=== PATIENT | female | born 1995 | race American Indian/Alaskan Native ===

== ENCOUNTER 2019-12-15 00:29 | Emergency (ER) | payer SELFPAY ==
--- NOTE | 2019-12-15 01:23 | XRay Report ---
LEFT SHOULDER 3 VIEWS INDICATION / CLINICAL INFORMATION: Left shoulder pain and swelling after fall. COMPARISON: None available. FINDINGS: BONES and JOINT(S): No acute fracture or subluxation. No significant arthritis. SOFT TISSUES: No significant abnormality. ADDITIONAL FINDINGS: None. IMPRESSION: No significant abnormality of the left shoulder. Signer Name: Roni Aldridge MD Signed: 12/15/2019 1:18 AM Workstation Name: [id number]
--- NOTE | 2019-12-15 03:31 | Emergency Department Report ---
Chief Complaint: Extremity Injury, Upper Stated Complaint: SHOULDER INJURY Time Seen by Provider: 12/15/19 03:25 - HPI History of Present Illness: 24-year-old -[place] female presents to the emergency room complaining of left shoulder pain that she injured while playing basketball today. - Exam Vital Signs: Vital Signs 12/15/19 00:48 Temperature 98.3 F Pulse Rate 71 Respiratory 18 Rate Blood Pressure 128/74 O2 Sat by Pulse 98 Oximetry Physical Exam: Alert and oriented 3 Left shoulder full range of motion mild tenderness. MSE screening note: Focused history and physical exam performed. Due to findings the following was ordered: 24-year-old -[place] female presents to the emergency room complaining of left shoulder pain that she injured while playing basketball today. ED Disposition for MSE Clinical Impression: Injury of left shoulder Disposition: Z- MED SCREENING EXAM-LEFT Is pt being admited?: No Does the pt Need Aspirin: No Condition: Stable Additional Instructions: Take [id number] ibuprofen or Tylenol for pain management x-ray is negative for any dislocation or fractures Referrals: PRIMARY CARE, [Primary Care Provider] - 3-5 Days
[2019-12-15 03:46] VITALS: BP 135/72
== END 2019-12-15 03:47 | disposition left against medical advice (07) ==
LOC: ED 00:29
DX: S49.92XA Unspecified injury of left shoulder and upper arm, initial encounter (principal); X58.XXXA Exposure to other specified factors, initial encounter; Y93.67 Activity, basketball; Y92.89 Other specified places as the place of occurrence of the external cause; Y99.8 Other external cause status

== ENCOUNTER 2020-05-03 18:45 | Emergency (ER) | payer SELFPAY | END 2020-05-04 07:35 | disposition left against medical advice (07) | LOC: ED 18:45 | DX: R51 Headache (principal); R07.89 Other chest pain; Z53.21 Procedure and treatment not carried out due to patient leaving prior to being seen by health care provider | CPT/HCPCS: 93005 ==

== ENCOUNTER 2020-07-13 23:09 | Emergency (ER) | payer SELFPAY ==
[2020-07-13 23:32] VITALS: BP 124/85
[2020-07-14] MEDS ORDERED: ONDANSETRON 4 MG ODT TAB PO ONE (00:40)
[2020-07-14 00:43] LABS: Bilirubin,Urine NEG (Negative); Blood,Urine LG (Negative); Color,Urine Yellow (Yellow); Mucus,Urine FEW /HPF; Protein,Urine <15 mg/dL mg/dL (Negative); Urobilinogen,Urine < 2.0 mg/dL (<2.0)
[2020-07-14 00:44] LABS: HCG Qualitative,Urine Negative (Negative)
--- NOTE | 2020-07-14 00:49 | Emergency Department Report ---
ED N/V/D HPI - General Chief complaint: Nausea/Vomiting/Diarrhea Stated complaint: NAUSEA,VOMITING,DIZZINESS Source: patient Mode of arrival: Ambulatory Limitations: No Limitations - History of Present Illness Initial comments: Patient is a nulliparous 25-year-old -[place] female with no past medical history presents to the ED with complaint of acute onset persistent in tractable nausea and vomiting for the last 4 hours after eating potato salad at a cookout dinner at a friend's house about 6 hours ago. Patient states that she has had 2 intractable nausea and vomiting episodes the last time of which was in the ED upon arrival. Patient states that she tried to drink some water but was unable to keep anything down because of nausea and vomiting. Patient denies a bdominal pain, dizziness, syncope, fever, chills, diarrhea, dysuria, urinary frequency and urgency, chest pain, shortness of breath, sore throat, headache or vaginal bleeding and vaginal discharge. MD complaint: nausea, vomiting -: Sudden, hour(s) (4) Description of Vomiting: food contents Location: diffuse Radiation: none Severity: moderate Quality: dull Consistency: intermittent Improves with: none Worsens with: none Context: possible food poisoning Associated Symptoms: denies other symptoms, myalgias, loss of appetite, malaise. denies: chest pain, cough, diaphoresis, fever/chills, headaches, nausea/vomiting, rash, dysuria, shortness of breath, syncope, weakness - Related Data Previous Rx's Medication Instructions Recorded Last Taken Type Famotidine [Pepcid] 20 mg PO Q12H #40 tablet 07/14/20 Unknown Rx Ondansetron [Zofran Odt] 4 mg PO Q6HR PRN #20 tab.rapdis 07/14/20 Unknown Rx Allergies Allergy/AdvReac Type Severity Reaction Status Date / Time No Known Allergies Allergy Unverified 12/15/19 00:54 ED Review of Systems ROS: Stated complaint: NAUSEA,VOMITING,DIZZINESS Other details as noted in HPI Constitutional: malaise, weakness. denies: chills, fever Eyes: denies: eye pain, eye discharge, vision change ENT: denies: ear pain, throat pain Respiratory: denies: cough, shortness of breath, wheezing Cardiovascular: denies: chest pain, palpitations Endocrine: no symptoms reported Gastrointestinal: nausea, vomiting. denies: abdominal pain, diarrhea Genitourinary: denies: urgency, dysuria, discharge Musculoskeletal: myalgia. denies: back pain, joint swelling, arthralgia Skin: denies: rash, lesions Neurological: denies: weakness, paresthesias Psychiatric: anxiety. denies: depression Hematological/Lymphatic: denies: easy bleeding, easy bruising ED Past Medical Hx - Past Medical History Previous Medical History?: No - Surgical History Past Surgical History?: Yes Additional Surgical History: Elbow - Social History Smoking Status: Never Smoker Substance Use Type: Marijuana - Medications Home Medications: Home Medications Medication Instructions Recorded Confirmed Last Taken Type Famotidine [Pepcid] 20 mg PO Q12H #40 tablet 07/14/20 Unknown Rx Ondansetron [Zofran Odt] 4 mg PO Q6HR PRN #20 tab.rapdis 07/14/20 Unknown Rx ED Physical Exam - General Limitations: No Limitations General appearance: alert, in no apparent distress - Head Head exam: Present: atraumatic, normocephalic, normal inspection - Eye Eye exam: Present: normal appearance, PERRL, EOMI Pupils: Present: normal accommodation - ENT ENT exam: Present: normal exam, normal orophraynx, mucous membranes moist, TM's normal bilaterally, normal external ear exam - Neck Neck exam: Present: normal inspection, full ROM - Respiratory Respiratory exam: Present: normal lung sounds bilaterally. Absent: respiratory distress, wheezes, rales, rhonchi, chest wall tenderness, accessory muscle use, decreased breath sounds, prolonged expiratory - Cardiovascular Cardiovascular Exam: Present: regular rate, normal rhythm, normal heart sounds. Absent: systolic murmur, diastolic murmur, rubs, gallop - GI/Abdominal GI/Abdominal exam: Present: soft, normal bowel sounds. Absent: tenderness, guarding, rebound, hyperactive bowel sounds, hypoactive bowel sounds, organomegaly - Extremities Exam Extremities exam: Present: normal inspection, full ROM, normal capillary refill - Back Exam Back exam: Present: normal inspection, full ROM. Absent: tenderness, CVA tenderness (R), CVA tenderness (L), muscle spasm, paraspinal tenderness, vertebral tenderness - Neurological Exam Neurological exam: Present: alert, oriented X3, CN II-XII intact, normal gait, reflexes normal - Psychiatric Psychiatric exam: Present: normal affect, normal mood - Skin Skin exam: Present: warm, dry, intact, normal color. Absent: rash ED Course Vital Signs 07/13/20 23:26 Temperature 97.8 F Pulse Rate 64 Respiratory 18 Rate Blood Pressure 124/85 O2 Sat by Pulse 100 Oximetry ED Medical Decision Making - Medical Decision Making This is a nulliparous 25-year-old -[place] female with no past medical history presents to the ED with complaint of acute onset persistent intractable nausea and vomiting for the last 4 hours after eating potato salad at a cookout dinner at a friend's house about 6 hours ago. Patient states that she has had 2 intractable nausea and vomiting episodes the last time of which was in the ED upon arrival. Patient states that she tried to drink some water but was unable to keep anything down because of nausea and vomiting. In the ED, patient is alert and oriented x3 and is not in any distress. Patient was treated for nausea and vomiting in the ED and given oral fluid challenge. Urinalysis unremarkable and the hCG urine is negative. Patient declined at the lab tests claiming that she is feeling better after the 2 episodes of nausea and vomiting and after taking medications. Patient passed oral fluid challenge in the ED. Patient was discharged home on antiemetics and antacids and was advised to follow-up with her primary care physician in 5 to 7 days for reevaluation. Patient was meanwhile advised to maintain a clear liquid diet for 12 to 24 hours, and to return to the ED immediately if symptoms get worse. - Differential Diagnosis Gastroenteritis; Dehydration; ; UTI; Critical care attestation.: If time is entered above; I have spent that time in minutes in the direct care of this critically ill patient, excluding procedure time. ED Disposition Clinical Impression: Nausea and vomiting in adult, Viral gastroenteritis Disposition: DC-01 TO HOME OR SELFCARE Is pt being admited?: No Does the pt Need Aspirin: No Condition: Stable Instructions: Gastroenteritis (ED), Acute Nausea and Vomiting (ED) Additional Instructions: Maintain a clear liquid diet for 12 to 24 hours, take medication as needed for nausea and vomiting and follow-up with your primary care physician in 5 to 7 days for evaluation. Return to the ED immediately if symptoms get worse. Prescriptions: Famotidine [Pepcid] 20 mg PO Q12H #40 tablet Ondansetron [Zofran Odt] 4 mg PO Q6HR PRN #20 tab.rapdis PRN Reason: Nausea Referrals: [facility] [Provider Group] - 3-5 Days Time of Disposition: 00:51 Print Language: KOSOVAN
== END 2020-07-14 01:39 | disposition home or self-care (01) ==
LOC: ED 23:09
DX: K21.9 Gastro-esophageal reflux disease without esophagitis (principal)
CPT/HCPCS: 81001; 81025; 99283; Q0162

== ENCOUNTER 2021-12-06 22:56 | Emergency (ER) | payer SELFPAY | END 2021-12-06 23:38 | disposition left against medical advice (07) | LOC: ED 22:56 | DX: O26.891 Other specified pregnancy related conditions, first trimester (principal); R10.9 Unspecified abdominal pain; Z53.21 Procedure and treatment not carried out due to patient leaving prior to being seen by health care provider; Z3A.00 Weeks of gestation of pregnancy not specified ==

== ENCOUNTER 2022-05-29 13:36 | Outpatient (CLI) | payer MEDICAID ==
[2022-05-29 16:47] VITALS: BP 102/59
== END 2022-05-29 17:04 | disposition home or self-care (01) ==
LOC: TRG 13:36 → APU 13:37 → TRG 17:04
PROVIDERS: ATTEND Obstetrics & Gynecology
DX: O26.893 Other specified pregnancy related conditions, third trimester (principal); Z3A.38 38 weeks gestation of pregnancy
CPT/HCPCS: 59025

== ENCOUNTER 2022-05-30 04:53 | Outpatient (CLI) | payer MEDICAID ==
[2022-05-30 08:33] VITALS: BP 135/79
== END 2022-05-30 08:41 | disposition home or self-care (01) ==
LOC: TRG 04:53 → APU 04:54 → TRG 08:41
PROVIDERS: ATTEND Obstetrics & Gynecology
DX: O62.9 Abnormality of forces of labor, unspecified (principal); O26.893 Other specified pregnancy related conditions, third trimester; R10.9 Unspecified abdominal pain; Z3A.38 38 weeks gestation of pregnancy
CPT/HCPCS: 36415; 84112

== ENCOUNTER 2022-05-30 18:46 | Outpatient (CLI) | payer MEDICAID ==
[2022-05-30 19:59] VITALS: BP 141/88
[2022-05-30] MEDS ORDERED: ACETAMINOPHEN 500 MG TAB PO ONE (22:00)
--- NOTE | 2022-05-30 22:07 | Ultrasound Report ---
ULTRASOUND OBSTETRIC LIMITED ULTRASOUND BIOPHYSICAL PROFILE INDICATION / CLINICAL INFORMATION: WELL BEING. COMPARISON: None available. FINDINGS: BREATHING MOVEMENT = 2 GROSS BODY MOVEMENT = 2 TONE = 2 QUALITATIVE AMNIOTIC FLUID VOLUME = 2 TOTAL BIOPHYSICAL SCORE = 8/8 AMNIOTIC FLUID INDEX (cm) = 5.2 PRESENTATION: Cephalic. HEART RATE (beats per minute): 143 ADDITIONAL FINDINGS: None. IMPRESSION: 1. Biophysical Score = 8/8 2. Oligohydramnios Signer Name: Pieter Hernandes MD Signed: 05/30/2022 10:02 PM Workstation Name: [id number]
== END 2022-05-30 22:04 | disposition home or self-care (01) ==
LOC: TRG 18:46 → APU 18:47 → TRG 22:04
PROVIDERS: ATTEND Obstetrics & Gynecology
DX: O62.9 Abnormality of forces of labor, unspecified (principal); Z3A.38 38 weeks gestation of pregnancy
CPT/HCPCS: 76815; 76819

== ENCOUNTER 2022-05-31 07:08 | Inpatient (IN) | payer MEDICAID ==
[2022-05-31] MEDS ORDERED: OXYTOCIN DRIP 30 UNITS/500 ML BAG IV SCH ×2 (08:00→09:00)
[2022-05-31] MEDS ORDERED: LACTATED RINGERS 1,000 ML IV SCH (08:00)
[2022-05-31] MEDS ORDERED: LACTATED RINGERS 1,000 ML ONE (08:19)
[2022-05-31 08:27] LABS: Hematocrit 29.1 % (30.3-42.9); Hemoglobin 9.8 gm/dl (10.1-14.3); Mean Corpuscular HGB Conc 34 % (30-34); Mean Corpuscular Volume 86 fl (79-97); Platelet Count 248 K/mm3 (140-440); Red Blood Count 3.37 M/mm3 (3.65-5.03); Red Cell Distribution Width 15.2 % (13.2-15.2)
[2022-05-31] MEDS ORDERED: BUTORPHANOL 2 MG/1 ML INJ IV PRN (08:30)
[2022-05-31] MEDS ORDERED: ACETAMINOPHEN 325 MG TAB PO PRN ×2 (08:30→18:34)
[2022-05-31] MEDS ORDERED: ePHEDrine SULFATE 50 MG/1 ML INJ IV PRN ×2 (08:30→11:30)
[2022-05-31] MEDS ORDERED: AMPICILLIN/NS 2 GM/100 ML 2 GM/100 ML BAG IV SCH (08:30)
[2022-05-31] MEDS ORDERED: LIDOCAINE (2%) 20 MG/1 ML VIAL 20 ML MDV INFILTRATI SCH (08:30)
[2022-05-31] MEDS ORDERED: METHYLERGONOVINE MALEATE 0.2 MG/ML VIAL IM PRN (08:30)
[2022-05-31] MEDS ORDERED: OXYTOCIN 10 UNIT/1 ML INJ IM PRN (08:30)
[2022-05-31] MEDS ORDERED: LOPERAMIDE 2 MG CAP PO PRN (08:30)
[2022-05-31] MEDS ORDERED: CARBOPROST TROMETHAMINE 250 MCG/1 ML INJ IM PRN (08:30)
[2022-05-31] MEDS ORDERED: miSOPROStol 200 MCG TAB PR PRN (08:30)
[2022-05-31] MEDS ORDERED: fentaNYL 100 MCG/2 ML INJ IV PRN (08:30)
[2022-05-31] MEDS ORDERED: TERBUTALINE 1 MG/1 ML INJ SUB-Q PRN (09:00)
[2022-05-31] MEDS ORDERED: MINERAL OIL 30 ML ORAL LIQD PO PRN (09:00)
[2022-05-31] MEDS ORDERED: fentaNYL-BUPIV 2 MCG/ML-0.125% 200 MCG/100 ML BAG EPIDURAL ONE (10:41)
--- NOTE | 2022-05-31 11:09 | Progress Note ---
Labor Epidural - Labor Epidural Start Time: 09:49 Stop Time: 10:21 Performed by:: SID ROMERO Procedure: Patient is requesting epidural for labor pain. H&P and labs reviewed. Procedure explained, questions answered, consent obtained. Patient placed in sitting position with monitors applied. Timeout performed immediately before start of procedure. Prep/drape in usual sterile fashion. Skin localized 3 mL 1% lidocaine at L 2-3 x 1 attempt and L[3]-L[4] interspace x 2 attempts. 17-gauge Touhy epidural needle advanced to ADELIA with saline at [8] cm x 3 attempts. No blood/CSF noted via epidural needle. Epidural catheter advanced to [12] cm. Negative aspiration for blood and CSF via catheter, negative response to test dose 3 ml 1.5% lidocaine w/ Epi. Sterile dressing applied followed by tape reinforcement. Patient tolerated procedure well. No immediate complications noted.
--- NOTE | 2022-05-31 11:11 | Anesthesia Consultation ---
Anesthesia Consult and Med Hx Date of service: 05/31/22 - Airway Anesthetic Teeth Evaluation: Poor ROM Head & Neck: Adequate Mental/Hyoid Distance: Adequate Mallampati Class: Class II Intubation Access Assessment: Probably Good - Pulmonary Exam CTA: Yes - Cardiac Exam Cardiac Exam: RRR - Pre-Operative Health Status ASA Pre-Surgery Classification: ASA2 Proposed Anesthetic Plan: Epidural - Pulmonary Hx Smoking: No Hx Asthma: No COPD: No Hx Pneumonia: No - Cardiovascular System Hx Hypertension: No - Central Nervous System Hx Seizures: No Hx Back Pain: Yes Hx Psychiatric Problems: No - Endocrine Hx Renal Disease: No Hx End Stage Renal Disease: No Hx Hypothyroidism: No Hx Hyperthyroidism: No - Hematic Hx Anemia: No Hx Sickle Cell Disease: No - Other Systems Hx Alcohol Use: No Hx Substance Use: No Hx Obesity: No
[2022-05-31] MEDS ORDERED: fentaNYL-BUPIV 2 MCG/ML-0.125% 200 MCG/100 ML BAG EPIDURAL SCH (12:00)
[2022-05-31] MEDS ORDERED: NALOXONE 0.4 MG/1 ML INJ IV PRN (12:00)
[2022-05-31] MEDS ORDERED: AMPICILLIN/NS 1 GM/50 ML 1 GM/50 ML BAG IV SCH (13:00)
--- NOTE | 2022-05-31 18:30 | History and Physical Report ---
History of Present Illness Date of examination: 05/31/22 Date of admission: 05/31/22 08:04 Chief complaint: Contractions History of present illness: 38+5wks. NADEEN 06/09/22, Primigravida. Past History Past Medical History: no pertinent history - Obstetrical History Expected Date of Delivery: 06/09/22 Actual Gestation: 38 Week(s) 5 Day(s) : 1 Medications and Allergies Allergies Allergy/AdvReac Type Severity Reaction Status Date / Time No Known Allergies Allergy Unverified 12/15/19 00:54 Home Medications Medication Instructions Recorded Confirmed Last Taken Type Famotidine [Pepcid] 20 mg PO Q12H #40 tablet 07/14/20 Unknown Rx Ondansetron [Zofran Odt] 4 mg PO Q6HR PRN #20 tab.rapdis 07/14/20 Unknown Rx Active Meds: Active Medications Acetaminophen (Acetaminophen 325 Mg Tab) 650 mg PO Q4H PRN PRN Reason: Pain, Mild (1-3) Butorphanol Tartrate (Butorphanol 2 Mg/1 Ml Inj) 1 mg IV Q2H PRN PRN Reason: Pain, Moderate(4-6) LABOR PAIN Carboprost Tromethamine (Carboprost Tromethamine 250 Mcg/1 Ml Inj) 250 mcg IM ONCE PRN PRN Reason: Uterine Bleeding Ephedrine Sulfate (Ephedrine Sulfate 50 Mg/1 Ml Inj) 10 mg IV Q2M PRN PRN Reason: Hypotension Fentanyl (Fentanyl 100 Mcg/2 Ml Inj) 100 mcg IV Q2H PRN PRN Reason: Pain,Severe (7-10) LABOR PAIN Last Admin: 05/31/22 08:35 Dose: 100 mcg Oxytocin/Sodium Chloride (Pitocin/Ns 30 Unit/500ml) 30 units in 500 mls @ 2 mls/hr IV TITR [facility]; Protocol Last Admin: 05/31/22 12:20 Dose: 2 ml/hr, 2 mls/hr Lactated Ringer's (Lactated Ringers) 1,000 mls @ 125 mls/hr IV DIRECT JUSTIN Last Admin: 05/31/22 08:36 Dose: 125 mls/hr Oxytocin/Sodium Chloride (Pitocin/Ns 30 Unit/500ml) 30 units in 500 mls @ 40 mls/hr IV TITR [facility]; Protocol Ampicillin Sodium (Ampicillin/Ns 1 Gm/50 Ml) 1 gm in 50 mls @ 100 mls/hr IV Q4H [facility]; Protocol Last Admin: 05/31/22 12:42 Dose: 100 mls/hr Fentanyl/Bupivacaine/Sodium Chlor (Fentanyl-Bupiv 2 Mcg/Ml-0.125%) 200 mcg in 100 mls @ 12 mls/hr EPIDURAL TITR [facility]; Protocol Lidocaine (Lidocaine (2%) 20 Mg/1 Ml Vial 20 Ml Mdv) 20 ml INFILTRATI ONCE@0830 [facility] Stop: 06/01/22 08:29 Loperamide HCl (Loperamide 2 Mg Cap) 2 mg PO ONCE PRN PRN Reason: give with Hemabate Methylergonovine Maleate (Methylergonovine Maleate 0.2 Mg/Ml Vial) 0.2 mg IM ONCE PRN PRN Reason: Uterine Bleeding Mineral Oil (Mineral Oil 30 Ml Oral Liqd) 30 ml PO QHS PRN PRN Reason: Constipation Misoprostol (Misoprostol 200 Mcg Tab) 800 mcg NC ONCE PRN PRN Reason: Uterine Bleeding Naloxone HCl (Naloxone 0.4 Mg/1 Ml Inj) 0.2 mg IV Q5MIN PRN PRN Reason: Respiratory sedation Oxytocin (Oxytocin 10 Unit/1 Ml Inj) 10 unit IM ONCE PRN PRN Reason: Uterine Bleeding Terbutaline Sulfate (Terbutaline 1 Mg/1 Ml Inj) 0.25 mg SUB-Q ONCE PRN PRN Reason: Hyperstimulation/Hypertonicity Review of Systems All systems: negative Genitourinary: contractions - Vital Signs Vital signs: Vital Signs Pulse Pulse Ox 120 H 100 05/31/22 07:22 05/31/22 07:22 Temp Pulse Resp BP Pulse Ox 98.2 F 106 H 138/89 100 05/31/22 07:46 05/31/22 18:22 05/31/22 18:22 05/31/22 16:01 - Physical Exam Lungs: Positive: Normal air movement Abdomen: Positive: normal appearance, distention Genitourinary (Female): Positive: normal external genitalia, normal perenium Vulva: both: normal Vagina: Positive: normal moisture. Negative: discharge Cervix: Negative: lesion, discharge Uterus: Positive: enlarged, normal contour Anus/Rectum: Positive: normal perianal skin, heme negative. Negative: rectal mass, hemorrhoids Extremities: Deep Tendon Reflex Grade: Normal +2 - Obstetrical FHR: category 1 Cervical Dilatation: 5 Cervical Effacement Percentage: 100 station: 0+2 Uterine Contraction Pattern: Regular Uterine Contraction Intensity: Strong/Firm Results Result Diagrams: 05/31/22 07:30 Abnormal lab results 05/31/22 Range/Units 07:30 WBC 14.5 H (4.5-11.0) K/mm3 RBC 3.37 L (3.65-5.03) M/mm3 Hgb 9.8 L (10.1-14.3) gm/dl Hct 29.1 L (30.3-42.9) % All other labs normal. Assessment and Plan - Patient Problems (1) 38 weeks gestation of Current Visit: Yes Status: Acute (2) Active labor Current Visit: Yes Status: Acute Plan to address problem: vag delivery expected.
--- NOTE | 2022-05-31 18:33 | Procedure Note ---
OB Delivery Note - Delivery Date of Delivery: 05/31/22 Surgeon: LIOR PHILLIP Estimated blood loss: 200cc - Vaginal Delivery presentation: vertex Delivery position: OA Intrapartum events: none Delivery induction: none Delivery augmentation: rupture of membranes, pitocin Delivery monitor: external FHT, external uterine, internal uterine Route of delivery: Delivery placenta: spontaneous Delivery cord: 3 umbilical vessels Episiotomy: none Delivery laceration: 2nd degree (midline) Delivery repair: vicryl Anesthesia: epidural - A at 1 minute: 8 at 5 minutes: 9 Infant Gender: Female
[2022-05-31] MEDS ORDERED: MAGNESIUM HYDROXIDE (MOM) ORAL LIQD UDC PO PRN (18:34)
[2022-05-31] MEDS ORDERED: PROMETHAZINE 25 MG RECT SUPP PR PRN (18:34)
[2022-05-31] MEDS ORDERED: LANOLIN/ZINC/DIMETHICONE (LANSINOH) 7 GM TP PRN (18:34)
[2022-05-31] MEDS ORDERED: diphenhydrAMINE 25 MG CAP PO PRN (18:34)
[2022-05-31] MEDS ORDERED: KETOROLAC 30 MG/1 ML INJ IV PRN (18:34)
[2022-05-31] MEDS ORDERED: ONDANSETRON 4 MG/2 ML INJ IV PRN (18:34)
[2022-05-31] MEDS ORDERED: PROMETHAZINE 25 MG TAB PO PRN (18:34)
[2022-05-31] MEDS ORDERED: BENZOCAINE/MENTHOL 20/0.5% TOP SPRAY 56 GM TP PRN (22:28)
[2022-05-31] MEDS: WITCH HAZEL/ GLYCERIN PAD TP PRN (22:51)
[2022-05-31] MEDS: DOCUSATE SODIUM 100 MG CAP PO SCH (22:51)
[2022-06-01] MEDS: HYDROcodone/ACETAMINOPHEN 5-325 MG TAB PO PRN (00:19)
[2022-06-01] MEDS: IBUPROFEN 600 MG TAB PO PRN ×4 (05:49→23:20)
--- NOTE | 2022-06-01 09:14 | Post Anesthesia Evaluation ---
- Post Anesthesia Evaluation Patient Participated: Yes Airway Patent: Yes Stable Respiratory Function: Yes Nausea/Vomiting: No Temp > 96.8F: Yes Pain Manageable: Yes Adequeate Hydration: Yes Anesthesia Complications: No Block Receding Appropriately: Yes Patient on Ventilator: No
[2022-06-01] MEDS: PRENATAL VIT27-FE FUMARATE-FOLIC ACID VIT TAB PO SCH (09:50)
[2022-06-01] MEDS: DOCUSATE SODIUM 100 MG CAP PO SCH ×2 (09:50→23:19)
[2022-06-01 10:59] LABS: Hematocrit 26.9 % (30.3-42.9); Hemoglobin 8.6 gm/dl (10.1-14.3)
--- NOTE | 2022-06-01 13:05 | Progress Note ---
Assessment and Plan - Patient Problems (1) 38 weeks gestation of Current Visit: Yes Status: Resolved (2) Active labor Current Visit: Yes Status: Resolved (3) Status post vaginal delivery Current Visit: Yes Status: Acute Plan to address problem: Stable Subjective - Subjective Date of service: 06/01/22 Principal diagnosis: Status post vag delivery day 1. Interval history: 38+5wks. NADEEN 06/09/22, Primigravida. 06/01/22 yesterday Patient reports: appetite normal, voiding normally, pain well controlled, ambulating normally Ona: doing well, nursing well, bottle feeding Objective - Vital Signs Latest vital signs: Vital Signs Temp Pulse Resp BP BP Pulse Ox Pulse Ox 06/01/22 09:50 98 06/01/22 07:52 98.5 F 78 18 108/58 98 06/01/22 05:49 16 06/01/22 05:12 98.1 F 85 18 129/81 99 06/01/22 00:57 99.0 F 101 H 16 130/75 100 06/01/22 00:19 18 05/31/22 20:43 99 05/31/22 20:13 98.5 F 107 H 16 131/82 100 05/31/22 19:58 114 H 84 05/31/22 19:56 101 H 99 05/31/22 19:53 121 H 91 05/31/22 19:52 107 H 126/73 05/31/22 19:51 110 H 98 05/31/22 19:46 95 H 99 05/31/22 19:41 93 H 98 05/31/22 19:37 96 H 126/71 05/31/22 19:36 101 H 98 05/31/22 19:31 99 H 100 05/31/22 19:30 98.1 F 99 H 18 122/69 100 05/31/22 19:26 112 H 122/69 100 05/31/22 19:07 102 H 126/86 05/31/22 18:52 103 H 116/74 05/31/22 18:37 59 L 119/94 05/31/22 18:22 106 H 138/89 05/31/22 18:07 96 H 137/80 05/31/22 17:59 94 H 137/80 05/31/22 17:37 101 H 160/82 05/31/22 16:01 101 H 100 05/31/22 15:58 86 94 05/31/22 15:56 85 95 05/31/22 15:53 87 94 05/31/22 15:51 87 99 05/31/22 15:46 84 99 05/31/22 15:41 75 100 05/31/22 15:37 82 L 05/31/22 15:36 98 H 99 05/31/22 15:31 89 87 05/31/22 15:30 99 H 76 L 05/31/22 15:26 91 H 100 05/31/22 15:23 93 H 94 05/31/22 15:21 88 100 05/31/22 15:17 89 05/31/22 15:16 83 92 05/31/22 15:11 91 H 100 05/31/22 15:06 83 100 05/31/22 15:01 85 93 05/31/22 14:56 82 99 05/31/22 14:55 88 90 05/31/22 14:51 96 H 89 05/31/22 14:49 84 90 05/31/22 14:46 86 94 05/31/22 14:42 92 H 90 05/31/22 14:41 85 96 05/31/22 14:36 70 100 05/31/22 14:35 92 H 88 05/31/22 14:31 72 100 05/31/22 14:26 75 98 05/31/22 14:24 74 80 L 05/31/22 14:21 78 100 05/31/22 14:16 69 99 05/31/22 14:11 64 100 05/31/22 14:06 78 99 05/31/22 14:01 68 100 05/31/22 13:56 91 H 93 05/31/22 13:49 69 100 05/31/22 13:44 72 100 05/31/22 13:39 73 100 05/31/22 13:34 65 100 05/31/22 13:30 81 91 05/31/22 13:29 73 100 05/31/22 13:24 73 100 05/31/22 13:19 77 100 05/31/22 13:14 73 100 05/31/22 13:09 74 98 05/31/22 13:04 73 99 Intake and Output 05/31/22 06/01/22 06/01/22 23:59 07:59 15:59 Intake Total 600 240 120 Output Total 1100 800 Balance -500 -560 120 Intake: Oral 360 120 Intake, Free Water 240 240 Output: Urine 1100 800 Void 1100 800 Other: Total, Intake Amount 360 120 Total, Output Amount 500 800 # Voids Void 1 1 - Exam Breasts: Present: deferred Lungs: Present: Normal air movement Abdomen: Present: normal appearance, soft, normal bowel sounds Extremities: Present: normal Deep Tendon Reflex Grade: Normal +2 - Labs Labs: Abnormal lab results 06/01/22 Range/Units 10:39 Hgb 8.6 L (10.1-14.3) gm/dl Hct 26.9 L (30.3-42.9) %
--- NOTE | 2022-06-01 13:08 | Discharge Summary ---
Providers - Providers Date of Admission: 05/31/22 08:04 Date of discharge: 06/02/22 Attending physician: LIOR PHILLIP MD Primary care physician: LIOR PHILLIP MD Hospitalization Reason for admission: active labor, IUP at term Delivery: Episiotomy: none Laceration: 2nd degree Other procedures: none complications: none Discharge diagnosis: IUP at term delivered baby: female Condition at discharge: Good Disposition: 01 HOME / SELF CARE / HOMELESS - Discharge Diagnoses (1) 38 weeks gestation of Status: Resolved (2) Active labor Status: Resolved (3) Status post vaginal delivery Status: Acute Plan - Provider Discharge Summary Activity: routine, no sex for 6 weeks, no heavy lifting 4 weeks, no strenuous exercise Diet: routine Instructions: routine Additional instructions: [] Smoking cessation referral if applicable(refer to patient education folder for contact #) [] Refer to [facility] Booklet Call your doctor immediately for: * Fever > 100.5 * Heavy vaginal bleeding ( >1 pad per hour) * Severe persistent headache * Shortness of breath * Reddened, hot, painful area to leg or breast * Drainage or odor from incision. * Keep incision clean and dry at all times and follow doctor's instructions regarding bathing/showering - Follow up plan Follow up: LIOR PHILLIP MD [Primary Care Provider] - 7 Days
[2022-06-02] MEDS: HYDROcodone/ACETAMINOPHEN 5-325 MG TAB PO PRN (01:16)
[2022-06-02] MEDS: IBUPROFEN 600 MG TAB PO PRN ×2 (06:23→12:10)
[2022-06-02] MEDS: WITCH HAZEL/ GLYCERIN PAD TP PRN (10:04)
[2022-06-02] MEDS: PRENATAL VIT27-FE FUMARATE-FOLIC ACID VIT TAB PO SCH (10:04)
[2022-06-02] MEDS: DOCUSATE SODIUM 100 MG CAP PO SCH (10:04)
[2022-06-02 13:43] VITALS: BP 123/82
== END 2022-06-02 14:00 | disposition home or self-care (01) | DRG 775 ==
LOC: TRG 07:08 → APU 07:09 → TRG 08:01 → APU 08:04 → LD 08:11 → OB 20:20
PROVIDERS: ADMIT Obstetrics & Gynecology; ATTEND Obstetrics & Gynecology
PROC: 10E0XZZ Delivery of Products of Conception, External Approach (ICD-10-PCS; principal; 2022-05-31)
PROC: 0KQM0ZZ Repair Perineum Muscle, Open Approach (ICD-10-PCS; 2022-05-31)
PROC: 3E0R3BZ Introduction of Anesthetic Agent into Spinal Canal, Percutaneous Approach (ICD-10-PCS; 2022-05-31)
PROC: 00HU33Z Insertion of Infusion Device into Spinal Canal, Percutaneous Approach (ICD-10-PCS; 2022-05-31)
DX: O69.81X0 Labor and delivery complicated by cord around neck, without compression, not applicable or unspecified (principal); O70.1 Second degree perineal laceration during delivery; Z37.0 Single live birth; Z3A.38 38 weeks gestation of pregnancy; Z20.822 Contact with and (suspected) exposure to COVID-19
CPT/HCPCS: 36415; 59025; 76815; 76819; 84112; 85014; 85018; 85027; 86850; 86900; 86901; G0378; J3490; J0290; J2590; J3010; J7120; U0003